=== PATIENT | male | born 1970 ===

== ENCOUNTER 2024-04-24 20:41 | Emergency (ER) | payer SELFPAY ==
[2024-04-24 20:48] VITALS: BP 130/74
[2024-04-24 23:30] VITALS: BP 128/70
--- NOTE | 2024-04-25 02:32 | ED.ADDNOTE ---
Addendum entered and electronically signed by Brandon Salinas DO 04/25/24 18:30:
Attempted to contact the patient on the below number. No answer.
Original Note:
ED Addendum
ED Addendum
ED Addendum Note:
Patient had a chest x-ray ordered from the waiting room and while I was reviewing this study it was noted that patient had an approximate 5% apical pneumothorax. I notified attending, Dr. Knott, and we attempted to bring the patient immediately back
into the emergency room however patient had left the waiting room and reportedly was seen leaving with his . Patient did not have any registration information placed and I did not have a phone number to call so I contacted [address] [place] [address]
where patient was reportedly yesterday and I was able to get a phone number [phone]. 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 We were also given a telephone number of [phone] but this
was an invalid number and no answer. Per [facility] patient was aware of his 2 rib fractures prior to being discharged yesterday.
== END 2024-04-25 04:00 | disposition left against medical advice (07) ==
LOC: EMR 20:41
PROVIDERS: EMERGENCY PHYSICIAN Emergency Medicine
DX: J93.9 Pneumothorax, unspecified (principal); Z53.21 Procedure and treatment not carried out due to patient leaving prior to being seen by health care provider
CPT/HCPCS: 71046

== ENCOUNTER 2024-04-26 11:21 | Emergency (ER) | payer BC, SELFPAY ==
[2024-04-26 11:45] VITALS: BP 135/88
--- NOTE | 2024-04-26 12:04 | ED.GENMED ---
History of Present Illness
General
Chief Complaint: Breathing Problem
Source: patient
Time Seen by Provider: 04/26/24 11:45
History of Present Illness
History of Present Illness:
54-year-old male presenting back to the emergency department for evaluation after presenting to this emergency department Friday night due to feeling shortness of breath in the setting of known recently diagnosed right-sided rib fractures, chest
x-ray performed at that time which showed a small apical pneumothorax, patient left without being seen by medical provider and had been via telephone and was recommended to come back to the ER for evaluation. Patient notes that his shortness of
breath has somewhat improved but he is still having right-sided rib pain and feels a cracking sensation when he takes too big of a deep breath in. Patient denies any fevers. No other concerns at this time.
Past History
Past History
ED Past Medical History: None
ED Past Surgical History: Orthopedic
Social History
Tobacco: Non-smoker
Alcohol: Occasional
Drug: None
Personal:
Living: with family
Review of Systems
Review of Systems
All Other Systems: ROS reviewed and negative except as documented in HPI and ROS
Phy Exam
Physical Exam
Physical Exam:
GENERAL: Alert , in no apparent distress, but does appear uncomfortable with deep inspiration
EYE: conjunctiva clear
NECK: Supple
ENT: o/p clr, mmm.
CARDIAC: Regular rate and rhythm
LUNGS: Clear breath sounds bilaterally, no acute respiratory distress, no wheezes/rales/rhonchi
NEUROLOGICAL: Alert and oriented
SKIN: Warm and dry, skin intact.
MUSCULOSKELETAL: well perfused.
PSYCH: Normal and appropriate interaction.
Scores
Heart Failure Risk
Heart Failure Risk Score: Not Applicable
Heart Score for Chest Pain Patients
STEMI patient?: Not applicable
Withdrawal Assessment of Alcohol
Withdrawal Assessment Completed?: Not applicable
Course
Orders/Labs/Results
Orders:
Orders
04/26/24 11:31
CXR2 [CR Chest - 2 Views ] Urgent
Comment:
Reason For Exam: possible collapsed lung
Vital Signs
Initial and Last Documented VS:
Initial Vital Signs
Temp Pulse Resp BP Pulse Ox
98.8 F 69 18 135/88 97
04/26/24 11:45 04/26/24 11:45 04/26/24 11:45 04/26/24 11:45 04/26/24 11:45
Last Documented Vital Signs
Temp Pulse Resp BP Pulse Ox
98.8 F 69 18 135/88 97
04/26/24 11:45 04/26/24 11:45 04/26/24 11:45 04/26/24 11:45 04/26/24 11:45
MDM/Problems Addressed
Differential Diagnosis Includes:
Traumatic pneumothorax secondary to rib fractures, hemothorax, less concern for other visceral injury
MDM/Problems Addressed:
54-year-old male presenting back to the emergency department for reevaluation after chest x-ray performed 2 days ago showed a 10% apical pneumothorax in the setting of newly diagnosed rib fractures. Patient is in no acute distress, hemodynamically
stable, oxygen saturation in the upper 90s. Will reobtain x-ray here to evaluate for any possible worsening of pneumothorax. As long as pneumothorax remains stable or improved patient will likely be able to be discharged home and outpatient
follow-up. If worsening patient may need admission for further evaluation and management.
*Radiology
Radiology exam reviewed: preliminary read by ED provider (Interval improvement of right apical pneumothorax)
*Pulse Oximetry
Patient hypoxic: no
*Critical Care Note
Total Time (30-74mins, 75-104mins- exclusive of procedures): Not Applicable
Patient Management
Escalation/DeEscalation of care consider admission/obs:
Patient's chest x-ray shows improvement of the pneumothorax. At this time it is reasonable for patient to be discharged home. He has an incentive spirometer and I advised continued use of this. Patient requesting refill of pain medication.
Prescription of oxycodone sent to pharmacy. Patient currently does not have a primary care provider so I referred him to the primary care referral line. Patient aware of return precautions.
ED Attending Note
-
Portions of this chart may have been created with voice recognition software.� Occasional wrong word or��sound alike� substitutions may have occurred due to the inherent limitations of voice recognition software.
Discharge Plan
Departure
Patient Disposition: Home (Routine Discharge)
Date of Disposition: 04/26/24
Time of Disposition: 13:18
Patient with high blood pressure during this ER visit?: No
Discharge Problem:
Pneumothorax on right
Instructions: Pneumothorax (collapsed lung) - Discharge instructions
Prescriptions:
New
oxycodone 5 mg tablet
5 mg PO BID PRN (Reason: Pain) Qty: 10 0RF
Interventions
Interventions:
*Risk Screen - Suicide Last Done: 04/26/24 11:45
*General Assessment Last Done: 04/26/24 11:45
Discharge Date and Time
Print Language: MAORI
== END 2024-04-26 13:47 | disposition home or self-care (01) ==
LOC: EMR 11:21
PROVIDERS: EMERGENCY PHYSICIAN Emergency Medicine
DX: S27.0XXA Traumatic pneumothorax, initial encounter (principal); X58.XXXA Exposure to other specified factors, initial encounter
CPT/HCPCS: 99283; 71046